=== PATIENT | female | born 1985 | race African-American/Black ===

== ENCOUNTER 2020-08-09 22:30 | Emergency (ER) | payer MEDICAID ==
[~2020-08-09] VITALS: Ht 165.1 cm; Wt 60.0 kg
[2020-08-09 22:34] VITALS: BP 132/68
== END 2020-08-10 00:12 | disposition left against medical advice (07) ==
LOC: ER 22:30
DX: M25.512 Pain in left shoulder (principal); Z53.21 Procedure and treatment not carried out due to patient leaving prior to being seen by health care provider